=== PATIENT | male | born 1955 | race Caucasian/White ===

== ENCOUNTER 2016-07-05 16:25 | Inpatient (IN) | payer MEDICARE ==
[2016-07-05 17:08] LABS: MPV 10.3 fL (7.4-10.4)
[2016-07-05 17:22] LABS: PT-INR 1.1
[2016-07-05 17:23] LABS: BLOOD UREA NITROGEN 55 MG/DL (9-20); CALC CORRECTED 9.6 MG/DL (8.4-10.2); CALCIUM 9.5 MG/DL (8.4-10.2); CALCULATED OSMOLALITY 279 MOs/Kg (270-290); CHLORIDE 90 mEq/L (98-107); GLUCOSE 253 mg/dL (70-99); SODIUM LEVEL 132 mEq/L (137-146); TOTAL PROTEIN 7.3 G/DL (6.3-8.2)
[2016-07-05 17:59] LABS: SEG NEUTROPHIL 86 % (45-76)
[2016-07-05 18:53] LABS: ALLEN'S TEST PASS; BEb 11.1 (+/- 2); TCO2 41.4 MMOL/L (23-27)
[2016-07-05 18:54] LABS: ABG Draw Site Right Radial
--- NOTE | 2016-07-05 19:13 | EDPRACDOC ---
<Andreina Ariza Alexia - Last Filed: 07/05/16 20:59> - General Information Mode Of Arrival: Car - History of Present Illness HPI: Pt with hx of COPD c/o progressive SOB x 2-3 days, feeling very sleepy and dec energy. Dx with bronchitis last tuesday, given abx, pt did not get better. On home O2 at 4L 24/[address] at night[address] Dr Painting sent pt over to be admitted. Shortness of Breath: Severe Cough: Denies: Non-productive, NO, Productive, Clear, Bloody, Brown, Green, White, Yellow, T, BK, HK, CO, S, WK, O Rhinorrhea: Denies: Clear, Bloody, Brown, Green, Purulent, None, O Ear Symptoms: Reports: None SOB Worsens with: Reports: Exertion, Movement SOB Improves with: Reports: Sitting up Recently treated infections:: Reports: URI <Gustavo Rivero - Last Filed: 07/06/16 05:11> - General Information Chief Complaint: Dyspnea/Resp distress Stated Complaint: TROUBLE BREATHING O2 SAT LOW AMS CHEST BURNING Home Medications: Home Medications Albuterol Sulfate [Ventolin] 2.5 mg NEB Q6H PRN 04/28/14 Fluticasone/Salmeterol [Advair 250-50] 1 puff INH BID 04/28/14 Nebulizer [Erapid Nebulizer] 1 each MC UNK 04/28/14 Tiotropium [place] [Spiriva] 1 puff INH DAILY 04/28/14 Metoprolol Tartrate [Lopressor] 25 mg PO BID 05/03/14 Prednisone [Deltasone, Orasone] 40 mg PO DAILY 08/25/15 Albuterol Sulfate [Proair Hfa] 2 puff INH Q4-6H PRN 07/05/16 Furosemide [Lasix] 80 mg PO DAILY PRN 07/05/16 Glipizide Xl [Glucotrol Xl] 2.5 mg PO DAILY 07/05/16 Allergies/Adverse Reactions: Allergies Allergy/AdvReac Type Severity Reaction Status Date / Time lorazepam [From Ativan] Allergy Difficulty Verified 07/05/16 22:43 Breathing ED Past Medical History - History Reviewed Yes Nurses notes reviewed and agree except as marked - Patient Medical History Cardiac History: Reports: Hypertension, Congestive Heart Failure Respiratory History: Reports: COPD, Emphysema GI/ History: Reports: Renal Disease (CKD III) Systemic History: Reports: Diabetes. Denies: Cancer Surgical History: Denies: Cholecystectomy - Family Medical History Reports: Hypertension, Diabetes, Cancer. Denies: Stroke - Social Medical History Smoking Status: Former smoker <Gustavo Rivero - Last Filed: 07/06/16 05:11> EDM Review of Systems - Review of Systems ROS Negative Except as Marked: Yes All systems reviewed and were negative except as marked Constitutional: Fatigue Respiratory: Shortness of Breath, Bronchitis <Gustavo Rivero Blanchard - Last Filed: 07/06/16 05:11> - Physical Exam Last recorded Vital Signs: Last Vital Signs Temp 98.0 F 07/05/16 16:38 Pulse 107 07/05/16 19:45 Resp 20 07/05/16 19:45 BP 112/76 07/05/16 19:45 Pulse Ox 95 07/05/16 19:45 Oxygen Pulse Oxygen Saturation 95 O2 Device BiPAP Oxygen Flow Rate 40 Fraction of Inspired Oxygen ( FIO2) <Andreina Ariza - Last Filed: 07/05/16 20:59> - Physical Exam Constitutional: Alert, Distress (resp) Oriented to: Time, Person, Place Last recorded Vital Signs: Last Vital Signs Temp 98.0 F 07/05/16 16:38 Pulse 108 07/05/16 19:08 Resp 20 07/05/16 19:08 BP 128/74 07/05/16 19:08 Pulse Ox 94 07/05/16 19:08 Oxygen Pulse Oxygen Saturation 94 O2 Device BiPAP Oxygen Flow Rate 40 Fraction of Inspired Oxygen ( FIO2) - HEENT Head: Normal Eye Exam: negative: Conjunctival Injection, Scleral Icterus Oropharynx: negative: Drooling TMJ: Normal Nose: No Symptoms Reported Neck: Normal - Respiratory/Cardiovascular Respiratory: Diminished Cardiovascular: Tachycardia - GI Tenderness: Non tender - Musculoskeletal Back: Normal Extremities: Normal - Integumentary Skin: Normal - Neurologic Mood Description: Calm Thought: Coherent Perception: Normal <Gustavo Rivero - Last Filed: 07/06/16 05:11> ED SOB MDM - Results Result Diagrams: 07/05/16 16:58 07/05/16 16:58 Results: WBC 24.9 xk/uL (3.8-10.8) H 07/05/16 16:58 RBC 5.65 xM/uL (4.70-6.10) 07/05/16 16:58 Hgb 16.5 g/dL (14.0-18.0) 07/05/16 16:58 Hct 51.9 % (42-52) 07/05/16 16:58 MCV 92 fL (80-94) 07/05/16 16:58 MCH 29.2 pg (27-32) 07/05/16 16:58 MCHC 31.8 g/dl (33-36) L 07/05/16 16:58 RDW 14.9 % (11.5-14.5) H 07/05/16 16:58 Plt Count 219 xk/uL (130-400) 07/05/16 16:58 MPV 10.3 fL (7.4-10.4) 07/05/16 16:58 Neut % (Auto) Cancelled 07/05/16 16:58 Lymph % (Auto) Cancelled 07/05/16 16:58 [place] % (Auto) Cancelled 07/05/16 16:58 Eos % (Auto) Cancelled 07/05/16 16:58 Baso % (Auto) Cancelled 07/05/16 16:58 Absolute Neuts (auto) Cancelled 07/05/16 16:58 Absolute Lymphs (auto) Cancelled 07/05/16 16:58 Seg Neuts % (Manual) 86 % (45-76) H 07/05/16 16:58 Band Neutrophils % 1 % (0-5) 07/05/16 16:58 Lymphocytes % (Manual) 10 % (17-44) L 07/05/16 16:58 Monocytes % (Manual) 3 % (0-10) 07/05/16 16:58 Absolute Neutrophils 21.66 xk/uL (1.7-8.2) H 07/05/16 16:58 Absolute Lymphocytes 2.49 xk/uL (0.65-4.75) 07/05/16 16:58 Platelet Estimate Norm (NORMAL) 07/05/16 16:58 RBC Morphology Norm 07/05/16 16:58 PT 11.2 SEC (9.2-11.2) 07/05/16 16:58 INR 1.1 07/05/16 16:58 APTT 24.0 SEC (22-35) 07/05/16 16:58 Puncture Site Right radial 07/05/16 15:50 pH 7.370 pH UNITS (7.35-7.45) 07/05/16 15:50 pCO2 68.0 mmHg (35-45) H* 07/05/16 15:50 pO2 58.0 mmHg (80-100) L 07/05/16 15:50 HCO3 39.3 MMOL/L (22-26) H 07/05/16 15:50 Total CO2 41.4 MMOL/L (23-27) H 07/05/16 15:50 Base Excess 11.1 (+/- 2) H 07/05/16 15:50 FiO2 % 3lpm nc 07/05/16 15:50 Specimen Drawn By Allgi 07/05/16 15:50 Sodium 132 mEq/L (137-146) L 07/05/16 16:58 Potassium 5.8 mEq/L (3.5-5.1) H 07/05/16 16:58 Chloride 90 mEq/L (98-107) L 07/05/16 16:58 Carbon Dioxide 36 mMOL/L (22-33) H 07/05/16 16:58 Anion Gap 12 mEq/L (8-16) 07/05/16 16:58 BUN 55 MG/DL (9-20) H 07/05/16 16:58 Creatinine 1.80 MG/DL (0.66-1.25) H 07/05/16 16:58 Estimated GFR (MDRD) 38 mL/min (>=60) L 07/05/16 16:58 Glucose 253 mg/dL (70-99) H 07/05/16 16:58 Calculated Osmolality 279 MOs/Kg (270-290) 07/05/16 16:58 Lactic Acid 1.9 mEq/L (0.7-2.1) 07/05/16 19:18 Calcium 9.5 MG/DL (8.4-10.2) 07/05/16 16:58 Corrected Calcium 9.6 MG/DL (8.4-10.2) 07/05/16 16:58 Total Bilirubin 0.6 MG/DL (0.2-1.3) 07/05/16 16:58 AST 31 IU/L (17-59) 07/05/16 16:58 ALT 47 IU/L (21-72) 07/05/16 16:58 Alkaline Phosphatase 64 IU/L (50-160) 07/05/16 16:58 Troponin I 0.03 ng/mL (<.04) 07/05/16 19:50 Kob-H-Mpuymgsoyfg Pept 392 pg/mL (0-900) 07/05/16 16:58 Total Protein 7.3 G/DL (6.3-8.2) 07/05/16 16:58 Albumin 3.9 G/DL (3.5-5.0) 07/05/16 16:58 Urine Color Yellow 07/05/16 18:28 Urine Clarity Clear 07/05/16 18:28 Urine pH 5.0 (5.0-8.0) 07/05/16 18:28 Ur Specific [place] 1.020 (1.003-1.035) 07/05/16 18:28 Urine Protein 1+ (NEG/TRACE) H 07/05/16 18:28 Urine Glucose (UA) Neg (NEGATIVE) 07/05/16 18:28 Urine Ketones Neg (NEGATIVE) 07/05/16 18:28 Urine Occult Blood Neg (NEG/TRACE) 07/05/16 18:28 Urine Nitrite Neg (NEGATIVE) 07/05/16 18:28 Urine Bilirubin Neg (NEGATIVE) 07/05/16 18:28 Urine Urobilinogen <2.0 MG/DL (0-1) 07/05/16 18:28 Ur Leukocyte Esterase Neg (NEGATIVE) 07/05/16 18:28 Ur Epithelial Cells Occ 07/05/16 18:28 Lab Results 07/05/16 07/05/16 07/05/16 19:50 19:18 18:28 WBC RBC Hgb Hct MCV MCH MCHC RDW Plt Count MPV Neut % (Auto) Lymph % (Auto) [place] % (Auto) Eos % (Auto) Baso % (Auto) Absolute Neuts (auto) Absolute Lymphs (auto) Seg Neuts % (Manual) Band Neutrophils % Lymphocytes % (Manual) Monocytes % (Manual) Absolute Neutrophils Absolute Lymphocytes Platelet Estimate RBC Morphology PT INR APTT Puncture Site pH pCO2 pO2 HCO3 Total CO2 Base Excess FiO2 % Specimen Drawn By Sodium Potassium Chloride Carbon Dioxide Anion Gap BUN Creatinine Estimated GFR (MDRD) Glucose Calculated Osmolality Lactic Acid 1.9 Calcium Corrected Calcium Total Bilirubin AST ALT Alkaline Phosphatase Troponin I 0.03 Bvj-I-Eglsxmcakve Pept Total Protein Albumin Urine Color Yellow Urine Clarity Clear Urine pH 5.0 Ur Specific [place] 1.020 Urine Protein 1+ H Urine Glucose (UA) Neg Urine Ketones Neg Urine Occult Blood Neg Urine Nitrite Neg Urine Bilirubin Neg Urine Urobilinogen <2.0 Ur Leukocyte Esterase Neg Ur Epithelial Cells Occ 07/05/16 07/05/16 07/05/16 16:58 16:58 16:58 WBC 24.9 H RBC 5.65 Hgb 16.5 Hct 51.9 MCV 92 MCH 29.2 MCHC 31.8 L RDW 14.9 H Plt Count 219 MPV 10.3 Neut % (Auto) Cancelled Lymph % (Auto) Cancelled [place] % (Auto) Cancelled Eos % (Auto) Cancelled Baso % (Auto) Cancelled Absolute Neuts (auto) Cancelled Absolute Lymphs (auto) Cancelled Seg Neuts % (Manual) 86 H Band Neutrophils % 1 Lymphocytes % (Manual) 10 L Monocytes % (Manual) 3 Absolute Neutrophils 21.66 H Absolute Lymphocytes 2.49 Platelet Estimate Norm RBC Morphology Norm PT 11.2 INR 1.1 APTT 24.0 Puncture Site pH pCO2 pO2 HCO3 Total CO2 Base Excess FiO2 % Specimen Drawn By Sodium 132 L Potassium 5.8 H Chloride 90 L Carbon Dioxide 36 H Anion Gap 12 BUN 55 H Creatinine 1.80 H Estimated GFR (MDRD) 38 L Glucose 253 H Calculated Osmolality 279 Lactic Acid Calcium 9.5 Corrected Calcium 9.6 Total Bilirubin 0.6 AST 31 ALT 47 Alkaline Phosphatase 64 Troponin I 0.03 Nyr-C-Hjrckcwdjcw Pept 392 Total Protein 7.3 Albumin 3.9 Urine Color Urine Clarity Urine pH Ur Specific [place] Urine Protein Urine Glucose (UA) Urine Ketones Urine Occult Blood Urine Nitrite Urine Bilirubin Urine Urobilinogen Ur Leukocyte Esterase Ur Epithelial Cells 07/05/16 15:50 WBC RBC Hgb Hct MCV MCH MCHC RDW Plt Count MPV Neut % (Auto) Lymph % (Auto) [place] % (Auto) Eos % (Auto) Baso % (Auto) Absolute Neuts (auto) Absolute Lymphs (auto) Seg Neuts % (Manual) Band Neutrophils % Lymphocytes % (Manual) Monocytes % (Manual) Absolute Neutrophils Absolute Lymphocytes Platelet Estimate RBC Morphology PT INR APTT Puncture Site Right radial pH 7.370 pCO2 68.0 H* pO2 58.0 L HCO3 39.3 H Total CO2 41.4 H Base Excess 11.1 H FiO2 % 3lpm nc Specimen Drawn By Allgi Sodium Potassium Chloride Carbon Dioxide Anion Gap BUN Creatinine Estimated GFR (MDRD) Glucose Calculated Osmolality Lactic Acid Calcium Corrected Calcium Total Bilirubin AST ALT Alkaline Phosphatase Troponin I Ksj-T-Wkosjklwzlk Pept Total Protein Albumin Urine Color Urine Clarity Urine pH Ur Specific [place] Urine Protein Urine Glucose (UA) Urine Ketones Urine Occult Blood Urine Nitrite Urine Bilirubin Urine Urobilinogen Ur Leukocyte Esterase Ur Epithelial Cells - Additional Information Additional Information: FAILED OUTPAT MANAGMENT <Andreina Ariza N - Last Filed: 07/05/16 20:59> - Re-evaluation Re-evaluation 1 Re-evaluation Time: 19:17 (pt sitting, states he is comfortable and feeling better on the BIPAP) - Results Result Diagrams: 07/06/16 01:45 07/06/16 01:45 Results: WBC 24.9 xk/uL (3.8-10.8) H 07/05/16 16:58 RBC 5.65 xM/uL (4.70-6.10) 07/05/16 16:58 Hgb 16.5 g/dL (14.0-18.0) 07/05/16 16:58 Hct 51.9 % (42-52) 07/05/16 16:58 MCV 92 fL (80-94) 07/05/16 16:58 MCH 29.2 pg (27-32) 07/05/16 16:58 MCHC 31.8 g/dl (33-36) L 07/05/16 16:58 RDW 14.9 % (11.5-14.5) H 07/05/16 16:58 Plt Count 219 xk/uL (130-400) 07/05/16 16:58 MPV 10.3 fL (7.4-10.4) 07/05/16 16:58 Neut % (Auto) Cancelled 07/05/16 16:58 Lymph % (Auto) Cancelled 07/05/16 16:58 [place] % (Auto) Cancelled 07/05/16 16:58 Eos % (Auto) Cancelled 07/05/16 16:58 Baso % (Auto) Cancelled 07/05/16 16:58 Absolute Neuts (auto) Cancelled 07/05/16 16:58 Absolute Lymphs (auto) Cancelled 07/05/16 16:58 Seg Neuts % (Manual) 86 % (45-76) H 07/05/16 16:58 Band Neutrophils % 1 % (0-5) 07/05/16 16:58 Lymphocytes % (Manual) 10 % (17-44) L 07/05/16 16:58 Monocytes % (Manual) 3 % (0-10) 07/05/16 16:58 Absolute Neutrophils 21.66 xk/uL (1.7-8.2) H 07/05/16 16:58 Absolute Lymphocytes 2.49 xk/uL (0.65-4.75) 07/05/16 16:58 Platelet Estimate Norm (NORMAL) 07/05/16 16:58 RBC Morphology Norm 07/05/16 16:58 PT 11.2 SEC (9.2-11.2) 07/05/16 16:58 INR 1.1 07/05/16 16:58 APTT 24.0 SEC (22-35) 07/05/16 16:58 Puncture Site Right radial 07/05/16 15:50 pH 7.370 pH UNITS (7.35-7.45) 07/05/16 15:50 pCO2 68.0 mmHg (35-45) H* 07/05/16 15:50 pO2 58.0 mmHg (80-100) L 07/05/16 15:50 HCO3 39.3 MMOL/L (22-26) H 07/05/16 15:50 Total CO2 41.4 MMOL/L (23-27) H 07/05/16 15:50 Base Excess 11.1 (+/- 2) H 07/05/16 15:50 FiO2 % 3lpm nc 07/05/16 15:50 Specimen Drawn By [employer]gi 07/05/16 15:50 Sodium 132 mEq/L (137-146) L 07/05/16 16:58 Potassium 5.8 mEq/L (3.5-5.1) H 07/05/16 16:58 Chloride 90 mEq/L (98-107) L 07/05/16 16:58 Carbon Dioxide 36 mMOL/L (22-33) H 07/05/16 16:58 Anion Gap 12 mEq/L (8-16) 07/05/16 16:58 BUN 55 MG/DL (9-20) H 07/05/16 16:58 Creatinine 1.80 MG/DL (0.66-1.25) H 07/05/16 16:58 Estimated GFR (MDRD) 38 mL/min (>=60) L 07/05/16 16:58 Glucose 253 mg/dL (70-99) H 07/05/16 16:58 Calculated Osmolality 279 MOs/Kg (270-290) 07/05/16 16:58 Calcium 9.5 MG/DL (8.4-10.2) 07/05/16 16:58 Corrected Calcium 9.6 MG/DL (8.4-10.2) 07/05/16 16:58 Total Bilirubin 0.6 MG/DL (0.2-1.3) 07/05/16 16:58 AST 31 IU/L (17-59) 07/05/16 16:58 ALT 47 IU/L (21-72) 07/05/16 16:58 Alkaline Phosphatase 64 IU/L (50-160) 07/05/16 16:58 Troponin I 0.03 ng/mL (<.04) 07/05/16 16:58 Kii-I-Rzbegfxsuol Pept 392 pg/mL (0-900) 07/05/16 16:58 Total Protein 7.3 G/DL (6.3-8.2) 07/05/16 16:58 Albumin 3.9 G/DL (3.5-5.0) 07/05/16 16:58 Lab Results 07/05/16 07/05/16 07/05/16 16:58 16:58 16:58 WBC 24.9 H RBC 5.65 Hgb 16.5 Hct 51.9 MCV 92 MCH 29.2 MCHC 31.8 L RDW 14.9 H Plt Count 219 MPV 10.3 Neut % (Auto) Cancelled Lymph % (Auto) Cancelled [place] % (Auto) Cancelled Eos % (Auto) Cancelled Baso % (Auto) Cancelled Absolute Neuts (auto) Cancelled Absolute Lymphs (auto) Cancelled Seg Neuts % (Manual) 86 H Band Neutrophils % 1 Lymphocytes % (Manual) 10 L Monocytes % (Manual) 3 Absolute Neutrophils 21.66 H Absolute Lymphocytes 2.49 Platelet Estimate Norm RBC Morphology Norm PT 11.2 INR 1.1 APTT 24.0 Puncture Site pH pCO2 pO2 HCO3 Total CO2 Base Excess FiO2 % Specimen Drawn By Sodium 132 L Potassium 5.8 H Chloride 90 L Carbon Dioxide 36 H Anion Gap 12 BUN 55 H Creatinine 1.80 H Estimated GFR (MDRD) 38 L Glucose 253 H Calculated Osmolality 279 Calcium 9.5 Corrected Calcium 9.6 Total Bilirubin 0.6 AST 31 ALT 47 Alkaline Phosphatase 64 Troponin I 0.03 Bjn-X-Aidtydzbevv Pept 392 Total Protein 7.3 Albumin 3.9 07/05/16 15:50 WBC RBC Hgb Hct MCV MCH MCHC RDW Plt Count MPV Neut % (Auto) Lymph % (Auto) [place] % (Auto) Eos % (Auto) Baso % (Auto) Absolute Neuts (auto) Absolute Lymphs (auto) Seg Neuts % (Manual) Band Neutrophils % Lymphocytes % (Manual) Monocytes % (Manual) Absolute Neutrophils Absolute Lymphocytes Platelet Estimate RBC Morphology PT INR APTT Puncture Site Right radial pH 7.370 pCO2 68.0 H* pO2 58.0 L HCO3 39.3 H Total CO2 41.4 H Base Excess 11.1 H FiO2 % 3lpm nc Specimen Drawn By Allgi Sodium Potassium Chloride Carbon Dioxide Anion Gap BUN Creatinine Estimated GFR (MDRD) Glucose Calculated Osmolality Calcium Corrected Calcium Total Bilirubin AST ALT Alkaline Phosphatase Troponin I Lrx-U-Xmsvsemxisj Pept Total Protein Albumin - EKG EKG #1 EKG Time: 16:45 -: Yes EKG interpreted by me Rate: bpm: 104 ST: Normal - Diagnostic Imaging Chest Image interpreted by: Radiologist Diagnostic Imaging Comments: EXAM: PORTABLE CHEST 1 VIEW COMPARISON: 08/29/2015 FINDINGS: Stable mild cardiac enlargement. Mild vascular congestion. Stable blunting of the right costophrenic angle. Stable lateral and basilar pleural thickening on the left. IMPRESSION: No acute findings. Stable cardiac enlargement and calcified pleural plaques. Electronically Signed By: Chris Goodman M.D. On: 07/05/2016 19:44 <Gustavo Rivero - Last Filed: 07/06/16 05:11> - Departure Disposition: Admit IP To This Hospital Decision to Admit Time: 21:07 Decision to admit date: 07/05/16 Decision to admit: from ED - Physician Consulted Hospitalist Time Called: 21:07 Provider Called: Agustin Cox Time Truck Manager Returned Call: 21:07 <Ariza,Andreina N - Last Filed: 07/05/16 20:59> <Gustavo Rivero - Last Filed: 07/06/16 05:11> - Departure Condition: Stable Final Diagnosis: Hypoxia, COPD exacerbation, Acute respiratory failure with hypoxia and hypercarbia Altered mental status Qualifiers: Altered mental status type: somnolence Qualified Code(s): R40.0 - Somnolence
[2016-07-05 19:30] LABS: LEUKOCYTES/URINE NEG (NEGATIVE); NITRITE/URINE NEG (NEGATIVE); URINE OCCULT BLOOD NEG (NEG/TRACE)
--- NOTE | 2016-07-05 19:47 | DIRPT ---
CLINICAL DATA: History of COPD with shortness of breath getting worse for 2-3 days EXAM: PORTABLE CHEST 1 VIEW COMPARISON: 08/29/2015 FINDINGS: Stable mild cardiac enlargement. Mild vascular congestion. Stable blunting of the right costophrenic angle. Stable lateral and basilar pleural thickening on the left. IMPRESSION: No acute findings. Stable cardiac enlargement and calcified pleural plaques. Electronically Signed By: Chris Goodman M.D. On: 07/05/2016 19:44
[2016-07-05] MEDS ORDERED: Albuterol/Ipratropium Neb 3 ML NEB NEB ONE (20:55)
[2016-07-05] MEDS ORDERED: METHYLPREDNISOLONE 125 MG/2 ML VIAL IV ONE (20:55)
[2016-07-05] MEDS ORDERED: AZITHROMYCIN 500 MG in D5W 250 ML IV ONE (21:00)
[2016-07-05] MEDS ORDERED: CEFTRIAXONE 1 GM in D5W 100 ML IV ONE (21:00)
[2016-07-05] MEDS ORDERED: ONDANSETRON HCL 4 MG/2 ML VIAL IV PRN (21:51)
[2016-07-05] MEDS ORDERED: DEXTROSE 25 GM/50 ML PFS IV PRN (21:51)
[2016-07-05] MEDS ORDERED: GLUCOSE (ORAL GEL) 15 GM TUBE PO PRN (21:51)
[2016-07-05] MEDS ORDERED: ALBUTEROL 0.083% 3 ML NEB NEB PRN (21:51)
[2016-07-05] MEDS ORDERED: ACETAMINOPHEN 325 MG/TAB TABLET PO PRN (21:51)
[2016-07-05] MEDS ORDERED: GLUCAGON 1 MG VIAL SQ PRN (21:51)
--- NOTE | 2016-07-05 22:01 | HISTPHYS ---
- Chief Complaint COPD exacerbation - History of Present Illness This is a pleasant 60-year-old male who was a patient of Dr. Michael, has known COPD as being admitted to the hospital due to COPD exacerbation. History is provided by the patient as well as his and daughter were at the bedside. They tell me that he has been having increased cough, shortness of breath with exertion for the last several weeks, has been treated with multiple rounds of p.o. antibiotics and IM steroid injections by Dr. Michael, but the patient is continued to worsen despite this therapy. As such, he was sent to the emergency department for evaluation and potential admission to the hospital for IV therapy for his COPD exacerbation. 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 Denies any fevers, chills, chest pain, though he did have some burning sensation earlier today. His shortness of breath at rest , and will exertion. No productive cough. No nausea, vomiting, sick contacts, recent travel or changes in his medication. - Medical History Cardiac History: Reports: Hypertension, Congestive Heart Failure Respiratory History: Reports: COPD, Emphysema GI/ History: Reports: Renal Disease (CKD III) Systemic History: Reports: Diabetes. Denies: Cancer - Surgical History Denies: Cholecystectomy - Medictions/Allergies Allergies No Known Allergies Allergy (Verified 08/25/15 15:18) Home Medications Albuterol Sulfate [Ventolin] 2.5 mg NEB Q6H PRN 04/28/14 Fluticasone/Salmeterol [Advair 250-50] 1 puff INH BID 04/28/14 Nebulizer [Erapid Nebulizer] 1 each MC UNK 04/28/14 Tiotropium [place] [Spiriva] 1 puff INH DAILY 04/28/14 Metoprolol Tartrate [Lopressor] 25 mg PO BID 05/03/14 Prednisone [Deltasone, Orasone] 40 mg PO DAILY 08/25/15 Albuterol Sulfate [Proair Hfa] 2 puff INH Q4-6H PRN 07/05/16 Furosemide [Lasix] 80 mg PO DAILY PRN 07/05/16 Glipizide Xl [Glucotrol Xl] 2.5 mg PO DAILY 07/05/16 - Family History Reports: Hypertension, Diabetes, Cancer. Denies: Stroke - Social History Smoking Status: Former smoker - Review of Systems Yes All systems reviewed and were negative except as marked (And as mentioned in the history of present illness above.) - Physical Exam Vital Signs: Initial Vitals Temperature 98.0 F 07/05/16 16:38 Pulse Rate 108 07/05/16 16:38 Respiratory Rate 24 07/05/16 16:38 Blood Pressure 131/70 07/05/16 16:38 Pulse Oxygen Saturation 85 L 07/05/16 16:38 - Focused CV Perfusion Exam Vital Signs: Last Vital Signs Temp 98.0 F 07/05/16 16:38 Pulse 93 07/05/16 21:24 Resp 20 07/05/16 21:24 BP 139/73 07/05/16 21:24 Pulse Ox 100 07/05/16 21:24 - Lab Results Laboratory Tests 07/05/16 07/05/16 07/05/16 15:50 16:58 16:58 WBC 24.9 H Hgb 16.5 Hct 51.9 INR pH 7.370 pCO2 68.0 H* pO2 58.0 L Sodium 132 L Potassium 5.8 H BUN 55 H Creatinine 1.80 H 07/05/16 16:58 WBC Hgb Hct INR 1.1 pH pCO2 pO2 Sodium Potassium BUN Creatinine - Diagnostic Findings Chest x-ray: Stable mild cardiac enlargement. Mild vascular congestion. Stable blunting of the right costophrenic angle. Stable lateral and basilar pleural thickening on the left. - Assessment (1) Acute respiratory failure with hypoxia and hypercarbia J96.01 - ACUTE RESPIRATORY FAILURE WITH HYPOXIA; J96.02 - ACUTE RESPIRATORY FAILURE WITH HYPERCAPNIA Acute Due to COPD exacerbation, treated as below. (2) COPD exacerbation J44.1 - CHRONIC OBSTRUCTIVE PULMONARY DISEASE W (ACUTE) EXACERBATION Acute Empiric IV antibiotics, steroid dose and taper. Recheck chest x-ray in the morning. Supplemental oxygen as needed, he will were BiPAP this evening and overnight, can switch to QT hours on and off as he improves gradually. Respiratory therapy has been consulted. Also be getting scheduled duo nebs, and p.r.n. albuterol. (3) Acute on chronic renal failure N17.9 - ACUTE KIDNEY FAILURE, UNSPECIFIED; N18.9 - CHRONIC KIDNEY DISEASE, UNSPECIFIED Acute He has chronic kidney disease with unknown baseline, although he was near his baseline when he has been in the hospital in the past with creatinine 1.5. Will watch renal function on a daily basis. Renally dose all medications, and avoid nephrotoxins agents. He also has some associated hyperkalemia, no EKG changes. Will hydrate gently and recheck renal function and electrolytes in the morning.
[2016-07-05] MEDS ORDERED: Vaccine Screening Complete SCH (23:00)
[2016-07-05] MEDS: NS 1,000 ML IV SCH (23:16)
[2016-07-06] MEDS: Albuterol/Ipratropium Neb 3 ML NEB NEB SCH ×4 (00:18→20:38)
[2016-07-06] MEDS: ENOXAPARIN 40 MG/0.4 ML PFS SQ SCH ×2 (00:21→16:30)
[2016-07-06 01:52] LABS: MPV 10.3 fL (7.4-10.4)
[2016-07-06 02:00] LABS: BLOOD UREA NITROGEN 54 MG/DL (9-20); CALCIUM 8.9 MG/DL (8.4-10.2); CALCULATED OSMOLALITY 285 MOs/Kg (270-290); CHLORIDE 87 mEq/L (98-107); GLUCOSE 400 mg/dL (70-99); SODIUM LEVEL 131 mEq/L (137-146)
[2016-07-06] MEDS ORDERED: FLUTICASONE/SALMETEROL 250/50 DISKUS INH SCH (02:00)
[2016-07-06] MEDS ORDERED: METHYLPREDNISOLONE 40 MG/1 ML VIAL IV SCH (03:00)
[2016-07-06] MEDS: METHYLPREDNISOLONE 125 MG/2 ML VIAL IV SCH ×4 (03:52→19:42)
[2016-07-06 04:23] VITALS: BMI 28.0
[2016-07-06] MEDS: GLIPIZIDE XL 2.5 MG TAB PO SCH (06:24)
[2016-07-06] MEDS: REGULAR INSULIN 100 UNITS/ML - 3 ML VIAL SQ SCH ×4 (06:25→19:41)
[2016-07-06] MEDS ORDERED: PNEUMOCOCCAL 0.5 ML VIAL IM ONE (08:00)
[2016-07-06] MEDS: FLUTICASONE/SALMETEROL 250/50 DISKUS INH SCH ×2 (08:23→20:39)
--- NOTE | 2016-07-06 08:59 | DIRPT ---
CLINICAL DATA: COPD exacerbation. Increased cough and shortness of breath. EXAM: CHEST 2 VIEW COMPARISON: Chest radiograph from one day prior. FINDINGS: Stable cardiomediastinal silhouette with mild cardiomegaly. No pneumothorax. Stable diffuse sheet like pleural calcification at the left lung base with stable chronic prominent blunting of the left costophrenic angle. Stable mild chronic blunting of the right costophrenic angle. Hyperinflated lungs. Mild diffuse linear parahilar lung opacities, slightly decreased. No acute consolidative airspace disease. IMPRESSION: 1. Stable mild cardiomegaly with slightly decreased mild diffuse linear parahilar lung opacities, favor improving mild pulmonary edema. 2. Stable chronic sheet like pleural calcification and pleural-parenchymal scarring at the left lung base. 3. Hyperinflated lungs, suggesting COPD. Electronically Signed By: Pranav Streeter M.D. On: 07/06/2016 08:57
[2016-07-06] MEDS ORDERED: Non-Formulary Medication ITEM (Tiotropium Bromide [Spiriva] 1 PUFF) INH SCH (09:00)
[2016-07-06] MEDS: SODIUM POLYSTYRENE SULFONATE 15 GM BOTTLE PO SCH ×3 (09:32→19:40)
[2016-07-06] MEDS: METOPROLOL TARTRATE 25 MG TAB PO SCH ×2 (09:32→19:42)
[2016-07-06] MEDS: NS 1,000 ML IV SCH ×2 (12:29→22:57)
[2016-07-06] MEDS: GUAIFENESIN 600 MG LA TAB PO SCH ×2 (15:22→19:42)
--- NOTE | 2016-07-06 17:54 | GENMEDPROG ---
Subjective Note: Patient admitted last night with severe exacerbation of CHRONIC OBSTRUCTIVE PULMONARY DISEASE. With respiratory failure and acute kidney injury. Usually uses 4 L of oxygen at home. Notes Reviewed: Yes: Events from last night noted and discussed with Clinical Staff Current Medication List: Reviewed Currently: Reports: Wheezing, [place], SOB DVT Prophylaxis: Yes - Physical Examination Vital Signs and I&O: Last Vital Signs Temp 98.3 F 07/06/16 16:05 Pulse 106 07/06/16 17:38 Resp 20 07/06/16 16:05 BP 122/67 07/06/16 16:05 Pulse Ox 94 07/06/16 16:05 Oxygen Pulse Oxygen Saturation 94 O2 Device Nasal Cannula Oxygen Flow Rate 4 Fraction of Inspired Oxygen ( 40 FIO2) Intake & Output 07/03/16 07/04/16 07/05/16 07/06/16 23:59 23:59 23:59 23:59 Intake Total 350 1704 Output Total 2700 Balance 350 -996 Patient's weight 99.138 kg 99.365 kg General: Alert, Oriented x3, No acute distress, Well appearing, Well nourished HEENT: Normal (Normocephalic, atraumatic;EOMI.Sclera white, Nares patent, without discharge or bleeding. No oropharyngeal lesions or erythema. Mucous membranes are dry.) Respiratory: Diminished. negative: Rhonchi, Wheezes Cardiovascular: Regular rate and rhythm (No bradycardia or tachycardia), Normal S1, No Gallops,Rubs/Murmurs, Normal S2, Good Pedal Pulses (DP pulses 2+ bilaterally) GI: Normal bowel sounds (normal active sounds), Soft (non-distended), Non tender , No hepatospenomegaly, No masses Extremities/Musculoskeletal: Normal pulses (DP pulses 2+ bilaterally) Skin: Warm,Dry and Intact, No rashes, No significant lesion Neurological: Strength at 5/5 X4 ext (Motor 5/5 throughout.), Normal tone, Cranial nerves 3-12 NL ( 2-12 grossly intact.) Lab/DI/Studies Reviewed: Abnormal Lab Results 07/06/16 07/06/16 07/06/16 12:03 16:03 19:22 WBC MCHC RDW MPV Seg Neuts % (Manual) Lymphocytes % (Manual) Absolute Neutrophils Sodium Chloride Carbon Dioxide BUN Creatinine Estimated GFR (MDRD) Glucose POC Capillary Glucose 232 H 229 H 279 H Calcium 07/07/16 07/07/16 07/07/16 04:00 04:00 06:09 WBC 22.4 H MCHC 32.0 L RDW 14.6 H MPV 10.6 H Seg Neuts % (Manual) 85 H Lymphocytes % (Manual) 6 L Absolute Neutrophils 19.04 H Sodium 135 L Chloride 90 L Carbon Dioxide 37 H BUN 57 H Creatinine 1.60 H Estimated GFR (MDRD) 44 L Glucose 236 H POC Capillary Glucose 309 H Calcium 8.3 L 07/07/16 10:44 WBC MCHC RDW MPV Seg Neuts % (Manual) Lymphocytes % (Manual) Absolute Neutrophils Sodium Chloride Carbon Dioxide BUN Creatinine Estimated GFR (MDRD) Glucose POC Capillary Glucose 240 H Calcium - Assessment (1) Acute respiratory failure with hypoxia and hypercarbia Acute J96.01 - ACUTE RESPIRATORY FAILURE WITH HYPOXIA; J96.02 - ACUTE RESPIRATORY FAILURE WITH HYPERCAPNIA Comment/Plan: Due to COPD exacerbation, treated as below. (2) COPD exacerbation Acute J44.1 - CHRONIC OBSTRUCTIVE PULMONARY DISEASE W (ACUTE) EXACERBATION Comment/Plan: BiPAP has been weaned off and he is doing fairly well today. Will continue present care and check ambulating O2 sats in a.m.. (3) Acute on chronic renal failure Acute N17.9 - ACUTE KIDNEY FAILURE, UNSPECIFIED; N18.9 - CHRONIC KIDNEY DISEASE, UNSPECIFIED Comment/Plan: He has chronic kidney disease with unknown baseline, although he was near his baseline when he has been in the hospital in the past with creatinine 1.5. Will watch renal function on a daily basis. Renally dose all medications, and avoid nephrotoxins agents. He also has some associated hyperkalemia, no EKG changes. Will hydrate gently and recheck renal function and electrolytes in the morning. (4) Hyperkalemia Acute E87.5 - HYPERKALEMIA Comment/Plan: Given acute situation will treat with 1 dose of Kayexalate. - Plan Continue treatment hopefully discharge in a.m. if O2 sats acceptable on oxygen Disposition Plan: Hopefully home Case Care Discussed with: Patient, Family, Nursing Staff Education/Counseling Given To: Patient, Family Member Education/Counseling Given Regarding: Diagnosis, Treatment, Prognosis, Follow Up , Disposition Plan Total Time: 45 minutes Critical Care: No Couseling Time (>50% in counseling/coordination): No
[2016-07-06] MEDS ORDERED: ENOXAPARIN 60 MG/0.6 ML PFS SQ SCH (18:00)
[2016-07-06] MEDS ORDERED: CEFTRIAXONE 1 GM in D5W 100 ML IV SCH (22:00)
[2016-07-06] MEDS ORDERED: AZITHROMYCIN 500 MG in D5W 250 ML IV SCH (22:00)
[2016-07-07] MEDS: Albuterol/Ipratropium Neb 3 ML NEB NEB SCH ×2 (02:00→08:15)
[2016-07-07] MEDS: METHYLPREDNISOLONE 125 MG/2 ML VIAL IV SCH ×2 (02:46→09:13)
[2016-07-07] MEDS: SODIUM POLYSTYRENE SULFONATE 15 GM BOTTLE PO SCH ×2 (02:46→09:10)
[2016-07-07] MEDS: NS 1,000 ML IV SCH (03:59)
[2016-07-07 04:51] LABS: MPV 10.6 fL (7.4-10.4)
[2016-07-07 05:13] LABS: BLOOD UREA NITROGEN 57 MG/DL (9-20); CALCIUM 8.3 MG/DL (8.4-10.2); CALCULATED OSMOLALITY 284 MOs/Kg (270-290); CHLORIDE 90 mEq/L (98-107); GLUCOSE 236 mg/dL (70-99); SODIUM LEVEL 135 mEq/L (137-146)
[2016-07-07 05:23] LABS: SEG NEUTROPHIL 85 % (45-76)
[2016-07-07] MEDS: REGULAR INSULIN 100 UNITS/ML - 3 ML VIAL SQ SCH ×2 (06:18→11:15)
[2016-07-07] MEDS: GLIPIZIDE XL 2.5 MG TAB PO SCH (06:18)
[2016-07-07] MEDS ORDERED: PNEUMOCOCCAL 0.5 ML VIAL IM ONE (08:00)
[2016-07-07] MEDS: FLUTICASONE/SALMETEROL 250/50 DISKUS INH SCH (08:20)
[2016-07-07] MEDS: GUAIFENESIN 600 MG LA TAB PO SCH (09:13)
[2016-07-07] MEDS: METOPROLOL TARTRATE 25 MG TAB PO SCH (09:13)
[2016-07-07 10:47] VITALS: BP 131/65; TEMP 98
[2016-07-07 11:31] VITALS: PULSE 102
--- NOTE | 2016-07-07 11:42 | PCM.DCS92 ---
- Final/Secondary Discharge Diagnosis (1) Acute respiratory failure with hypoxia and hypercarbia Acute J96.01 - ACUTE RESPIRATORY FAILURE WITH HYPOXIA; J96.02 - ACUTE RESPIRATORY FAILURE WITH HYPERCAPNIA Comment: Due to COPD exacerbation, treated as below. (2) COPD exacerbation Acute J44.1 - CHRONIC OBSTRUCTIVE PULMONARY DISEASE W (ACUTE) EXACERBATION Comment: BiPAP has been weaned off and he is doing fairly well today. Will continue present care and check ambulating O2 sats in a.m.. (3) Acute on chronic renal failure Acute N17.9 - ACUTE KIDNEY FAILURE, UNSPECIFIED; N18.9 - CHRONIC KIDNEY DISEASE, UNSPECIFIED Comment: He has chronic kidney disease with unknown baseline, although he was near his baseline when he has been in the hospital in the past with creatinine 1.5. Will watch renal function on a daily basis. Renally dose all medications, and avoid nephrotoxins agents. He also has some associated hyperkalemia, no EKG changes. Will hydrate gently and recheck renal function and electrolytes in the morning. (4) Hyperkalemia Acute E87.5 - HYPERKALEMIA Comment: Given acute situation will treat with 1 dose of Kayexalate. Discharge Disposition: Home Discharge Condition: Improved Cognitive Discharge Status: Unimpaired Fuctional Discharge Status: Independent Physician Follow up/Referrals: Teetee Matamoros MD [NonStaff] - One Week Home Medications / New Prescriptions: New Azithromycin 250 mg PO DAILY #4 tablet Continue Tiotropium [place] [Spiriva] 1 puff INH DAILY Fluticasone/Salmeterol [Advair 250-50] 1 puff INH BID Nebulizer [Erapid Nebulizer] 1 each MC UNK Metoprolol Tartrate [Lopressor] 25 mg PO BID Prednisone [Deltasone, Orasone] 40 mg PO DAILY Glipizide Xl [Glucotrol Xl] 2.5 mg PO DAILY Furosemide [Lasix] 80 mg PO DAILY PRN PRN Reason: Edema Albuterol Sulfate [Proair Hfa] 2 puff INH Q4-6H PRN PRN Reason: Shortness Of Breath Discontinued Albuterol Sulfate [Ventolin] 2.5 mg NEB Q6H PRN PRN Reason: Shortness Of Breath Abnormal Lab Results 07/06/16 07/06/16 07/06/16 12:03 16:03 19:22 WBC MCHC RDW MPV Seg Neuts % (Manual) Lymphocytes % (Manual) Absolute Neutrophils Sodium Chloride Carbon Dioxide BUN Creatinine Estimated GFR (MDRD) Glucose POC Capillary Glucose 232 H 229 H 279 H Calcium 07/07/16 07/07/16 07/07/16 04:00 04:00 06:09 WBC 22.4 H MCHC 32.0 L RDW 14.6 H MPV 10.6 H Seg Neuts % (Manual) 85 H Lymphocytes % (Manual) 6 L Absolute Neutrophils 19.04 H Sodium 135 L Chloride 90 L Carbon Dioxide 37 H BUN 57 H Creatinine 1.60 H Estimated GFR (MDRD) 44 L Glucose 236 H POC Capillary Glucose 309 H Calcium 8.3 L 07/07/16 10:44 WBC MCHC RDW MPV Seg Neuts % (Manual) Lymphocytes % (Manual) Absolute Neutrophils Sodium Chloride Carbon Dioxide BUN Creatinine Estimated GFR (MDRD) Glucose POC Capillary Glucose 240 H Calcium O2 Device: Nasal Cannula Oxygen Flow Rate: 4 Oxygen to be used after Discharge: Continuous Diet at Discharge: As Tolerated, Regular Activity: No Restrictions Call Office For: Worsening Symptoms, Fever over 100.5, Pain Uncontrolled By Meds - [facility] Summary Notes Hospital Course Note:: Discharge summary on patient named PENNY ESCOTO admitted to [facility] on 07/05/16 by Agustin Cox MD. Date of discharge is []. Pleasant 60-year-old gentleman admitted to our facility with respiratory failure acute exacerbation of CHRONIC OBSTRUCTIVE PULMONARY DISEASE and kidney injury. He was started on CPAP and was able to wean off it within hours. He continued treatment and did well on his home dose of oxygen which was 4 L nasal cannula when he ambulated this morning. At this point he has reached maximal benefit of hospitalization. He is stable for discharge home. Total Time: 45 min Code: 64651 (>30min.) - Physical Exam Vital Signs: Last Vital Signs Temp 98.0 F 07/07/16 10:46 Pulse 102 07/07/16 11:30 Resp 20 07/07/16 10:46 BP 131/65 07/07/16 10:46 Pulse Ox 89 L 07/07/16 11:31 Oxygen Pulse Oxygen Saturation 89 O2 Device Nasal Cannula Oxygen Flow Rate 4 Fraction of Inspired Oxygen ( 40 FIO2) Constitutional: Alert. negative: Distress Oriented to: Time, Person, Place - HEENT Head: Normal Eye: negative: Conjunctival Injection, Scleral Icterus Oropharynx: negative: Drooling TMJ: Normal Nose: No Symptoms Reported - Respiratory/Cardiovascular Respiratory: Diminished. negative: Rhonchi, Wheezes Cardiovascular: Normal (RRR , Normal S1, S2. No murmurs, rubs, or gallops. PMI non-displaced. Carotids: no carotid bruits. No bradycardia or tachycardia. DP pulses 2+ bilaterally.) - GI Auscultation: Normal (normal active sounds) Palpation: Normal (Soft,non distended,nontender. No hepatosplenomegaly.) Tenderness: Non tender - Musculoskeletal Back: Normal Extremities: Normal - Integumentary Skin: Normal - Neurologic Memory Impaired: Normal Motor Function: Normal (Motor 5/5 throughout.Normal tone, Pulses 2+ No cyanosis or edema, FROM) Cranial Nerve: Normal (CN II-XII intact sensation, strength 5/5) Cerebellar: Normal (Babinski: toes downgoing bilaterally. Intact Finger to nose. Sensory grossly intact to light touch. Intact rapid alternating movements bilaterally. No pronator drift.) Mood Description: Calm Thought: Coherent Perception: Normal - Other Exam Other Exam Findings: Abnormal Lab Results 07/06/16 07/06/16 07/06/16 12:03 16:03 19:22 WBC MCHC RDW MPV Seg Neuts % (Manual) Lymphocytes % (Manual) Absolute Neutrophils Sodium Chloride Carbon Dioxide BUN Creatinine Estimated GFR (MDRD) Glucose POC Capillary Glucose 232 H 229 H 279 H Calcium 07/07/16 07/07/16 07/07/16 04:00 04:00 06:09 WBC 22.4 H MCHC 32.0 L RDW 14.6 H MPV 10.6 H Seg Neuts % (Manual) 85 H Lymphocytes % (Manual) 6 L Absolute Neutrophils 19.04 H Sodium 135 L Chloride 90 L Carbon Dioxide 37 H BUN 57 H Creatinine 1.60 H Estimated GFR (MDRD) 44 L Glucose 236 H POC Capillary Glucose 309 H Calcium 8.3 L 07/07/16 10:44 WBC MCHC RDW MPV Seg Neuts % (Manual) Lymphocytes % (Manual) Absolute Neutrophils Sodium Chloride Carbon Dioxide BUN Creatinine Estimated GFR (MDRD) Glucose POC Capillary Glucose 240 H Calcium
== END 2016-07-07 13:29 | disposition home or self-care (01) | DRG 189 ==
LOC: ED 16:25 → PCU 21:51
PROVIDERS: ADMIT Internal Medicine; ATTEND Hospitalist
PROC: 4A033R1 Measurement of Arterial Saturation, Peripheral, Percutaneous Approach (ICD-10-PCS; principal; 2016-07-05)
DX: J96.01 Acute respiratory failure with hypoxia (principal); N17.9 Acute kidney failure, unspecified; J44.1 Chronic obstructive pulmonary disease with (acute) exacerbation; I13.0 Hypertensive heart and chronic kidney disease with heart failure and stage 1 through stage 4 chronic kidney disease, or unspecified chronic kidney disease; I50.9 Heart failure, unspecified; N18.3 Chronic kidney disease, stage 3 (moderate); Z99.81 Dependence on supplemental oxygen; Z23 Encounter for immunization; J96.02 Acute respiratory failure with hypercapnia; E87.5 Hyperkalemia; E11.9 Type 2 diabetes mellitus without complications; Z79.51 Long term (current) use of inhaled steroids; Z79.52 Long term (current) use of systemic steroids; Z79.84 Long term (current) use of oral hypoglycemic drugs
CPT/HCPCS: 36415; 36600; 71010; 71020; 80048; 80053; 81001; 82043; 82803; 82962; 83036; 83605; 83735; 83880; 84484; 85007; 85027; 85610; 85730; 90471; 90732; 93005; 94640; 94660; 96365; 96366; 96372; 96375; 98960; 99284; G0237; J0456; J0696; J1650; J2920; J2930; J3490; J7060; J7070; J7620